=== PATIENT | female | born 1935 | race Caucasian/White ===

== ENCOUNTER 2020-01-27 15:33 | Emergency (ER) | payer OTHER ==
[~2020-01-27] VITALS: Ht 157.5 cm; Wt 61.2 kg
[2020-01-27] MEDS ORDERED: NORVASC10 MG PO (15:55)
[2020-01-27] MEDS ORDERED: ASPIR 8181 MG PO (15:56)
[2020-01-27] MEDS ORDERED: DIALYVITE TABL1 EACH PO (15:57)
[2020-01-27] MEDS ORDERED: AVAPRO300 MG PO (15:58)
[2020-01-27] MEDS ORDERED: RESTORIL30 M1 PO (15:58)
[2020-01-27] MEDS ORDERED: LIPITOR40 M1 PO (15:58)
[2020-01-27] MEDS ORDERED: ARICEPT PO (15:58)
[2020-01-27] MEDS ORDERED: DITROPAN XL10 MG PO (15:59)
[2020-01-27] MEDS ORDERED: TAMS0.4C PO (15:59)
[2020-01-27] MEDS ORDERED: PYRIDIUM100 M1 PO (17:41)
[2020-01-27] MEDS ORDERED: TERCONAZOLE20 GM VAG (17:41)
[2020-01-27] MEDS ORDERED: POLY119PG PO (17:41)
[2020-01-27] MEDS ORDERED: RECTICARE30 GM RECTAL (17:41)
[2020-01-27] MEDS ORDERED: DULCOLAX5 MG PO (17:41)
== END 2020-01-27 17:53 | disposition home or self-care (01) ==
LOC: ER 15:33
DX: K64.8 Other hemorrhoids (principal); R30.0 Dysuria; N76.0 Acute vaginitis

== ENCOUNTER 2020-01-31 18:01 | Emergency (ER) | payer OTHER ==
[~2020-01-31] VITALS: Ht 160 cm; Wt 61.2 kg
[~2020-01-31 18:01] MED LIST: ARICEPT PO; ASPIR 8181 MG PO; AVAPRO300 MG PO; DIALYVITE TABL1 EACH PO; DITROPAN XL10 MG PO; DULCOLAX5 MG PO; LIPITOR40 M1 PO; NORVASC10 MG PO; POLY119PG PO; PYRIDIUM100 M1 PO; RECTICARE30 GM RECTAL; RESTORIL30 M1 PO; TAMS0.4C PO; TERCONAZOLE20 GM VAG
== END 2020-01-31 22:59 | disposition home or self-care (01) ==
LOC: ER 18:01
DX: N39.0 Urinary tract infection, site not specified (principal); K62.89 Other specified diseases of anus and rectum

== ENCOUNTER 2020-02-12 10:15 | Inpatient (IN) | payer OTHER ==
[~2020-02-12] VITALS: Ht 160 cm; Wt 61.2 kg
[2020-02-12] MEDS ORDERED: GABAPENTIN400 MG PO (10:17)
[2020-02-12] MEDS ORDERED: FOLIC ACID0.8 M1 PO (10:17)
[2020-02-15] MEDS ORDERED: ARICEPT10 MG PO (10:16)
[2020-02-16] MEDS ORDERED: HYOSCYAMINE0.125 M1 SL (11:01)
[2020-02-16] MEDS ORDERED: ULTRACET PO (11:02)
== END 2020-02-16 08:00 | disposition home or self-care (01) | DRG 334 ==
LOC: EDSTATUS 10:15 → ADM 10:15 → O/R 02-15 07:00 → SURH 02-15 09:10 → CIR.AMB 02-15 09:10 → RECOVERY 02-15 09:10 → O/R 02-15 09:10 → EDSTATUS 02-15 10:15 → RECOVERY 02-15 10:15 → O/R 02-15 15:37 → SURH 02-15 15:37 → O/R 02-15 15:39 → SURH 02-15 15:39 → O/R 02-16 08:00 → CIR.AMB 02-16 08:00 → SURH 02-16 13:09 → O/R 02-16 13:09
PROVIDERS: ADMIT Surgery; ATTEND Surgery
PROC: 0DBP7ZZ Excision of Rectum, Via Natural or Artificial Opening (ICD-10-PCS; 2020-02-15)
PROC: 0DH Gastrointestinal System, Insertion (ICD-10-PCS; principal; 2020-02-15 10:45)
DX: K62.3 Rectal prolapse (principal); R15.9 Full incontinence of feces; K62.89 Other specified diseases of anus and rectum

== ENCOUNTER 2021-01-27 08:29 | Outpatient (CLI) | payer OTHER ==
[~2021-01-27 08:29] MED LIST changes: +ARICEPT10 MG PO; +FOLIC ACID0.8 M1 PO; +GABAPENTIN400 MG PO; +HYOSCYAMINE0.125 M1 SL; +ULTRACET PO
[2021-01-28] MEDS ORDERED: PEPCID AC20 MG PO (16:36)
[2021-01-28] MEDS ORDERED: METOCLOPRAMIDE10 MG PO (16:36)
== END 2021-01-27 08:34 | disposition home or self-care (01) ==
LOC: RX STUDY 08:29
PROVIDERS: ATTEND Internal Medicine
DX: R13.19 Other dysphagia (principal)

== ENCOUNTER 2021-01-28 09:39 | Emergency (ER) | payer OTHER ==
[~2021-01-28] VITALS: Ht 160 cm; Wt 65.3 kg
[2021-01-28] MEDS ORDERED: PEPCID AC20 MG PO (16:36)
[2021-01-28] MEDS ORDERED: METOCLOPRAMIDE10 MG PO (16:36)
== END 2021-01-28 16:57 | disposition home or self-care (01) ==
LOC: ER 09:39
DX: R13.19 Other dysphagia (principal); E86.0 Dehydration